=== PATIENT | male | born 1970 | race African-American/Black ===

== ENCOUNTER 2018-07-18 20:14 | Emergency (ER) | payer SELFPAY ==
[2018-07-18] MEDS ORDERED: Ketorolac Tromethamine 30 MG/ML VIAL ONE (20:57)
--- NOTE | 2018-07-18 21:29 | RAD ---
LUMBAR SPINE: Indication: Low back pain and sciatica. Comparison: 04-06-15 FINDINGS: There are five lumbar type vertebrae. Vertebral body heights are preserved. Mild disc degenerating di sease is present. This is most prominent at L5-S1. There is moderate loss of disc space height. Spina l alignment is within normal limits. IMPRESSION: 1. Worsening moderate disc degenerative disease most prominent at L5-S1. 2. No acute fracture or subluxation demonstrated. POS: [facility]
== END 2018-07-18 21:53 | disposition home or self-care (01) ==
LOC: ERS 20:14
DX: M54.42 Lumbago with sciatica, left side (principal); Z71.6 Tobacco abuse counseling; F32.9 Major depressive disorder, single episode, unspecified; Z87.891 Personal history of nicotine dependence
CPT/HCPCS: 72100; 96372; 99406; J1885

== ENCOUNTER 2018-09-10 20:16 | Emergency (ER) | payer SELFPAY ==
[2018-09-10] MEDS ORDERED: Proparacaine 0.5% Opth 15 ML BOT ONE (20:44)
[2018-09-10] MEDS ORDERED: Fluorescein Opthalmic Strip ONE (20:44)
[2018-09-10] MEDS ORDERED: Adacel (T-DAP) 0.5 ML VIAL ONE (20:55)
[2018-09-10] MEDS ORDERED: Lidocaine 1% (PF) 30 ML VIAL ONE (21:11)
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
== END 2018-09-10 22:08 | disposition home or self-care (01) ==
LOC: ERS 20:16
DX: S01.81XA Laceration without foreign body of other part of head, initial encounter (principal); S01.412A Laceration without foreign body of left cheek and temporomandibular area, initial encounter; S01.112A Laceration without foreign body of left eyelid and periocular area, initial encounter; F32.9 Major depressive disorder, single episode, unspecified; Z87.891 Personal history of nicotine dependence; X99.1XXA Assault by knife, initial encounter
CPT/HCPCS: 12013; 70450; 70486; 90471; 90715; J2001

== ENCOUNTER 2020-04-03 11:58 | Outpatient (CLI) | payer OTHER ==
--- NOTE | 2020-04-03 12:49 | RAD ---
Chest 2 views HISTORY: Weight loss. COMPARISON: 02/28/2008. FINDINGS: Cardiac silhouette and pulmonary vasculature are unremarkable. Mediastinum is midline. No confluent airspace consolidation, pneumothorax, or pleural fluid. IMPRESSION : No active cardiopulmonary abnormalities are demonstrated.
== END 2020-04-03 11:59 | disposition home or self-care (01) ==
LOC: BICRAD 11:58
PROVIDERS: ATTEND Internal Medicine Gastroenterology
DX: R63.4 Abnormal weight loss (principal)
CPT/HCPCS: 71046

== ENCOUNTER 2020-04-16 | Outpatient (CLI) | payer OTHER | END 2020-04-16 14:36 | disposition home or self-care (01) | DX: M54.16 Radiculopathy, lumbar region (principal); M48.07 Spinal stenosis, lumbosacral region ==

== ENCOUNTER 2020-05-28 05:12 | Outpatient (CLI) | payer OTHER ==
[2020-05-29 14:01] LABS: SARS-CoV-2 MS2 Positive; SARS-CoV-2 N Gene Negative; SARS-CoV-2 S Gene Negative; SARS-CoV-2 orf1ab Negative
== END 2020-05-28 05:13 | disposition home or self-care (01) ==
LOC: LABBT 05:12
PROVIDERS: ATTEND Neurological Surgery
DX: Z01.818 Encounter for other preprocedural examination (principal); Z11.59 Encounter for screening for other viral diseases; M54.16 Radiculopathy, lumbar region
CPT/HCPCS: 87635; 93005; 93010; U0003

== ENCOUNTER 2020-06-01 07:32 | Day surgery (SDC) | payer OTHER ==
[2020-05-25 10:15] VITALS: BMI 20.5
--- NOTE | 2020-05-31 22:08 | HP ---
HISTORY OF PRESENT ILLNESS: Mr. Ramos is a 50-year-old man, referred to us for evaluation of low back pain with severe left lower extremity S1 pain with numbness and burning, particularly when sitting or lying flat. He has had this for many years, but the burning and numbness have been the same, only been in the last month or so. He has sought evaluation in the past at [facility] in [facility], with an MRI of the lumbar spine showing retrolisthesis at L5-1 with associated lateral recess stenosis in pattern of left S1 nerve root. He has had a new MRI that reveals worsening of the same level. He is distressed by how much this impacts his life. Examination is deferred. PAST MEDICAL HISTORY: Significant for chronic pain syndrome, hypertension. MEDICATIONS: Amlodipine, meloxicam, gabapentin. ALLERGIES: NO KNOWN DRUG ALLERGIES. PAST SURGICAL HISTORY: None listed. ASSESSMENT: Lumbar radiculopathy. PLAN: Dr. Henley met with the patient, reviewed imaging, and advocated for left L5-S1 decompression. He explained to the patient the risks, benefits, and alternatives to the procedure. The patient expressed understanding and elected to move forward with surgery as discussed. I do believe the patient is mentally competent and capable of making medical decisions for himself. We will move forward with surgery as planned. Job ID: [id number]
[2020-06-01] MEDS ORDERED: Midazolam HCl 2 mg/2 ml Vial ONE ×2 (09:07→10:23)
[2020-06-01] MEDS ORDERED: Acetaminophen 500 MG TAB ONE (09:08)
[2020-06-01] MEDS ORDERED: Fentanyl 100 MCG/2 ML VIAL ONE ×3 (10:22→12:53)
[2020-06-01] MEDS ORDERED: PHENYLEPHRINE-NS 100 MCG/ML 10 ML SYRINGE ONE (10:24)
[2020-06-01] MEDS ORDERED: Rocuronium Bromide 10 MG/ML (10ML VIAL) ONE (10:24)
[2020-06-01] MEDS ORDERED: Glycopyrrolate 0.2 MG/ML 5 ML SYRINGE ONE (10:24)
[2020-06-01] MEDS ORDERED: Lidocaine 1% PF 5 ML VIAL ONE (10:24)
[2020-06-01] MEDS ORDERED: Ondansetron PF 4 MG/2 ML Vial ONE (10:24)
[2020-06-01] MEDS ORDERED: PROPOFOL 200 MG/20 ML VIAL ONE (10:24)
[2020-06-01] MEDS ORDERED: Dexamethasone 20 MG/5 ML VIAL ONE (10:24)
--- NOTE | 2020-06-01 11:59 | OP ---
DATE OF PROCEDURE: 06/01/2020 GLOBAL SAFETY OFFICER: Jack Oliva PA-C INDICATION: Pain. DIAGNOSIS: Lumbar radiculopathy. PROCEDURE PERFORMED: Left L5-S1 decompression. ANESTHESIA: General. DESCRIPTION OF PROCEDURE: The patient was brought into the operating room and placed under general anesthesia. He was flipped from the supine to prone position on the operating room table. A linear incision was planned over the L5-S1 segment. After prepping and draping and after an appropriate preoperative pause, the incision was created. The soft tissues were swept left of midline. A self-retaining retractor was placed in the wound for optimal exposure. After confirming the appropriate level with C-arm fluoroscopy, 2, 3, and 4 mm Kerrisons were used to perform a laminectomy along the inferior aspect of L5 and the superior aspect of S1. The laminectomy was extended laterally to encompass the medial aspect of the facet joint in order to adequately decompress the descending left S1 nerve root. After completing the decompression, the wound was irrigated. Hemostasis was maintained throughout. The wound was then closed in anatomic layers, and a pressure dressing was applied. There were no known procedural complications. Job ID: [id number]
[2020-06-01] MEDS ORDERED: PROPOFOL 20 ML ONE (12:06)
== END 2020-06-01 15:53 | disposition home or self-care (01) ==
LOC: SDC 07:32
PROVIDERS: ATTEND Neurological Surgery
PROC: 01NB0ZZ Release Lumbar Nerve, Open Approach (ICD-10-PCS; principal; 2020-06-01)
DX: M54.16 Radiculopathy, lumbar region (principal); M43.17 Spondylolisthesis, lumbosacral region; M48.07 Spinal stenosis, lumbosacral region; G89.4 Chronic pain syndrome; I10 Essential (primary) hypertension; Z79.899 Other long term (current) drug therapy
CPT/HCPCS: 76000; J0690; J1100; J2250; J2405; J2704; J3010

== ENCOUNTER 2020-07-16 11:01 | Outpatient (CLI) | payer OTHER ==
--- NOTE | 2020-07-16 12:13 | RAD ---
LUMBAR SPINE 4 VIEWS: HISTORY: Postoperative back pain. COMPARISON: 07/18/2018. FINDINGS: Disk space narrowing at L5-S1 with minimal retrolisthesis and some prominent anterior osteophytes. N o abnormal translation between flexion and extension. Generalized facet arthrosis. IMPRESSION: Disk space narrowing and disk disease at L5-S1 with some retrolisthesis and some prominent anterior o steophytes overall unchanged from prior study. No abnormal translation between flexion and extension . POS: [facility]
== END 2020-07-16 11:02 | disposition home or self-care (01) ==
LOC: BICRAD 11:01
PROVIDERS: ATTEND Neurological Surgery
DX: M54.5 Low back pain (principal); M51.37 Other intervertebral disc degeneration, lumbosacral region; M43.17 Spondylolisthesis, lumbosacral region; M25.78 Osteophyte, vertebrae
CPT/HCPCS: 72110

== ENCOUNTER 2020-12-14 09:47 | Outpatient (CLI) | payer OTHER ==
[2020-12-14] MEDS ORDERED: Magnevist 469MG/ML 20 ML VIAL ONE (14:23)
== END 2020-12-14 09:48 | disposition home or self-care (01) ==
LOC: BICMRI 09:47
PROVIDERS: ATTEND Neurological Surgery
DX: M54.5 Low back pain (principal); R20.0 Anesthesia of skin; M51.37 Other intervertebral disc degeneration, lumbosacral region; M25.78 Osteophyte, vertebrae
CPT/HCPCS: 72158; A9579

== ENCOUNTER 2021-08-06 17:30 | Emergency (ER) | payer OTHER | END 2021-08-06 19:30 | disposition left against medical advice (07) | LOC: ERS 17:30 | DX: Z53.21 Procedure and treatment not carried out due to patient leaving prior to being seen by health care provider (principal) ==

== ENCOUNTER 2021-08-29 19:10 | Emergency (ER) | payer OTHER ==
[2021-08-29 20:24] LABS: ALT (SGPT) 18 U/L (8-55); AST (SGOT) 37 U/L (5-34); Alkaline Phosphatase 65 U/L (40-110); Anion Gap 16 mmol/L (10-20); BUN (Urea Nitrogen) 10 mg/dL (8.4-25.7); Calc. Creatinine Clearance 0 mL/min (70-130); Calcium 9.6 mg/dL (7.8-10.44); Carbon Dioxide 24 mmol/L (22-29); Chloride 104 mmol/L (98-107); Globulin 3.1 g/dL (2.4-3.5); Glucose 104 mg/dL (70-105); Potassium 3.3 mmol/L (3.5-5.1); Protein, Total 7.1 g/dL (6.0-8.3); Sodium 141 mmol/L (136-145)
[2021-08-29 20:42] LABS: #Eosinphils 0.6 thou/uL (0.0-0.7); #Lymphocytes 1.2 thou/uL (1.20-3.40); #Monocytes 0.4 thou/uL (0.11-0.59); #Neutrophils 2.6 thou/uL (1.40-6.50); %Basophils 0.7 % (0.0-1.0); %Eosinophils 13.2 % (0.0-10.0); %Lymphocytes 24.6 % (21.0-51.0); %Monocytes 7.4 % (0.0-10.0); %Neutrophils 54.1 % (42.0-75.0); Hemoglobin 13.7 g/dL (14.0-18.0); MDiff Complete? YES; Macrocytosis SLIGHT = 6-15 cells (100X) (0-5/hpf); Mean Corpuscular HGB CONC 35.3 g/dL (32.0-36.0); Mean Corpuscular Hemoglobin 37.2 pg (27.0-31.0); Mean Platelet Volume 10.4 fL (7.4-10.4); Platelet Count 53 thou/uL (130-400); Platelet Morphology Comment Appears Decreased; RBC Distribution Width 11.5 % (11.5-14.5); Red Blood Cell (RBC) Count 3.68 mill/uL (4.70-6.10); White Blood Cell (WBC) Count 4.8 thou/uL (4.8-10.8)
== END 2021-08-29 21:20 | disposition home or self-care (01) ==
LOC: ERS 19:10
DX: M54.16 Radiculopathy, lumbar region (principal); R09.81 Nasal congestion; I10 Essential (primary) hypertension; F17.210 Nicotine dependence, cigarettes, uncomplicated
CPT/HCPCS: 36415; 71045; 80053; 83880; 84484; 85025; 93005

== ENCOUNTER 2022-11-28 22:57 | Emergency (ER) | payer OTHER ==
[2022-11-28] MEDS ORDERED: Ketorolac Tromethamine 30 MG/ML VIAL ONE (23:35)
[2022-11-28] MEDS ORDERED: cloNIDine 0.1 MG TAB ONE (23:35)
[2022-11-29 00:28] LABS: Hemoglobin 12.5 g/dL (14.0-18.0); Mean Corpuscular HGB CONC 34.4 g/dL (32.0-36.0); RBC Distribution Width 11.8 % (11.5-14.5); Red Blood Cell (RBC) Count 3.38 mill/uL (4.70-6.10); White Blood Cell (WBC) Count 3.2 10x3/uL (4.8-10.8)
[2022-11-29 00:39] LABS: #Eosinphils 0.3 thou/uL (0.0-0.7); #Lymphocytes 0.7 thou/uL (1.20-3.40); #Monocytes 0.3 thou/uL (0.11-0.59); #Neutrophils 1.9 thou/uL (1.40-6.50); %Basophils 0.9 % (0.0-1.0); %Eosinophils 9.4 % (0.0-10.0); %Lymphocytes 22.3 % (21.0-51.0); %Monocytes 9.3 % (0.0-10.0); %Neutrophils 58.2 % (42.0-75.0); ALT (SGPT) 27 U/L (8-55); AST (SGOT) 63 U/L (5-34); Albumin 4.5 g/dL (3.5-5.0); Alkaline Phosphatase 60 U/L (40-110); Anion Gap 15 mmol/L (10-20); BUN (Urea Nitrogen) 8 mg/dL (8.4-25.7); Bilirubin, Total 1.8 mg/dL (0.2-1.2); Calc. Creatinine Clearance 0 mL/min (70-130); Calcium 9.5 mg/dL (7.8-10.44); Carbon Dioxide 28 mmol/L (22-29); Chloride 103 mmol/L (98-107); Estimated GFR 93; Globulin 2.9 g/dL (2.4-3.5); Glucose 100 mg/dL (70-105); Mean Platelet Volume 10.4 fL (7.4-10.4); Platelet Count 62 10x3/uL (130-400); Platelet Morphology Comment Appears Decreased; Potassium 3.8 mmol/L (3.5-5.1); Protein, Total 7.4 g/dL (6.0-8.3); Sodium 142 mmol/L (136-145)
== END 2022-11-29 01:20 ==
LOC: ERS 22:57
DX: I10 Essential (primary) hypertension (principal); R51.9 Headache, unspecified; D72.819 Decreased white blood cell count, unspecified; F17.210 Nicotine dependence, cigarettes, uncomplicated
CPT/HCPCS: 36415; 80053; 84484; 85025; 93005; 96374; J1885

== ENCOUNTER 2023-08-21 09:23 | Outpatient (CLI) | payer OTHER ==
[2023-08-21] MEDS ORDERED: Magnevist 469MG/ML 20 ML VIAL ONE (10:12)
== END 2023-08-21 09:24 | disposition home or self-care (01) ==
LOC: MRI 09:23
PROVIDERS: ATTEND Neurological Surgery
DX: M54.16 Radiculopathy, lumbar region (principal); M25.78 Osteophyte, vertebrae; M47.817 Spondylosis without myelopathy or radiculopathy, lumbosacral region
CPT/HCPCS: 72158

== ENCOUNTER 2023-11-13 14:04 | Outpatient (CLI) | payer OTHER | END 2023-11-13 14:05 | disposition home or self-care (01) | LOC: BICCT 14:04 | PROVIDERS: ATTEND Neurological Surgery | DX: M47.27 Other spondylosis with radiculopathy, lumbosacral region (principal) | CPT/HCPCS: 72131 ==

== ENCOUNTER 2023-12-11 14:45 | Outpatient (CLI) | payer OTHER | END 2023-12-11 14:46 | disposition home or self-care (01) | LOC: LABBT 14:45 | PROVIDERS: ATTEND Neurological Surgery | DX: Z01.810 Encounter for preprocedural cardiovascular examination (principal) | CPT/HCPCS: 93005; 93010 ==